=== PATIENT | male | born 1985 | race Two or more races ===

== ENCOUNTER 2016-08-09 02:55 | Emergency (ER) | payer BC ==
[~2016-08-09] VITALS: Ht 170.2 cm; Wt 68.4 kg
[2016-08-09] MEDS ORDERED: OXYcodone/APAP 5/325MG TABLET ONE (04:45)
[2016-08-09] MEDS ORDERED: KETOROLAC 30 MG/1 ML ONE (04:45)
[2016-08-09] MEDS ORDERED: ONDANSETRON ODT 4 MG ONE (04:46)
[2016-08-09 04:51] LABS: ASPARTATE AMINO TRANSFERASE 75 U/L (15-37); BLOOD UREA NITROGEN 12 mg/dL (7-18)
[2016-08-09] MEDS ORDERED: ONDANSETRON ODT 4 MG PO ONE (05:00)
[2016-08-09] MEDS ORDERED: OXYcodone/APAP 5/325MG TABLET PO ONE (05:00)
[2016-08-09] MEDS ORDERED: KETOROLAC 30 MG/1 ML IM ONE (05:00)
[2016-08-09] MEDS ORDERED: CEFTRIAXONE 1,000 MG ONE (05:47)
[2016-08-09] MEDS ORDERED: CEFTRIAXONE 1,000 MG IM ONE (06:00)
[2016-08-09 06:16] VITALS: BP 116/78
== END 2016-08-09 06:18 | disposition home or self-care (01) ==
LOC: ED 04:41
DX: J15.9 Unspecified bacterial pneumonia (principal); R10.30 Lower abdominal pain, unspecified
CPT/HCPCS: 36415; 74176; 80053; 81003; 83690; 85025; 87491; 87591; 96372; 99285; J0696; J1885; Q0162